=== PATIENT | female | born 1960 | race Caucasian/White ===

== ENCOUNTER 2018-09-21 12:39 | Emergency (ER) | payer MEDICARE, BC ==
[~2018-09-21] VITALS: Wt 56.7 kg
[2018-09-21] MEDS ORDERED: HYDROCODONE/APAP (10/325) TAB PO ONE (14:30)
[2018-09-21] MEDS ORDERED: PARO-2 PO (15:47)
[2018-09-21] MEDS ORDERED: LOSA100T15 PO (15:47)
[2018-09-21] MEDS ORDERED: HYDR50TA15 PO (15:48)
[2018-09-21] MEDS ORDERED: ASPI325T30 PO (15:51)
[2018-09-21] MEDS ORDERED: AMLO5TAB4 PO (15:51)
--- NOTE | 2018-09-21 16:29 | ERD ---
ER Documentation Chief Complaint Chief Complaint bib daughter, right elbow pain s/p fall "I think I dislocated my elbow" HPI This is a 58-year-old female who comes in for mechanical fall, with pain to her right elbow, along with swelling. Additionally she also landed on her right calcaneus, and complains of pain and swelling to this area as well. She had no head trauma, she had no syncopal episode. She denies any numbness or tingling, she did not suffer any abrasions or lacerations. ROS All systems reviewed and are negative except as per history of present illness. Medications Home Meds Active Scripts Hydrocodone/Acetaminophen (Hester 5-325 Tablet) 1 Each Tablet, 1 TAB PO Q6H PRN for PAIN, #7 TAB Prov:JIARO KNAPP MD 09/21/18 Reported Medications Aspirin* (Aspirin*) 325 Mg Tablet, 325 MG PO NEEDED, TAB 09/21/18 Amlodipine Besylate* (Norvasc*) 5 Mg Tablet, 5 MG PO DAILY, TAB 09/21/18 Hydroxyzine Hcl* (Hydroxyzine Hcl*) 50 Mg Tablet, 50 MG PO QHS PRN for ITCHING, #30 TAB TAKE 1 OR 2 TAB QHS 09/21/18 Losartan Potassium* (Losartan Potassium*) 100 Mg Tablet, 100 MG PO DAILY, TAB 09/21/18 Paroxetine Hcl* (Paxil*) 20 Mg Tablet, 10 MG PO HS, TAB 09/21/18 Allergies Allergies: Coded Allergies: clindamycin (Verified Allergy, Severe, 09/21/18) PMhx/Soc History of Surgery: Yes (rotator cuff repair, ankle sx, csection) Anesthesia Reaction: No Hx Alcohol Use: Yes (l) Hx Substance Use: Yes (marijuana) Hx Tobacco Use: Yes (10cig/day) Smoking Status: Current every day smoker Physical Exam Vitals Vital Signs Date Temp Pulse Resp B/P (MAP) Pulse Ox O2 O2 Flow FiO2 Time Delivery Rate 09/21/18 98.3 65 20 107/58 99 Room Air 16:45 (74) 09/21/18 98.3 83 19 115/72 100 12:43 (86) Physical Exam Const: No acute distress Head: Atraumatic Eyes: Normal Conjunctiva ENT: Normal External Ears, Nose and Mouth. Neck: Full range of motion. No meningismus. Resp: Clear to auscultation bilaterally Cardio: Regular rate and rhythm, no murmurs Abd: Soft, non tender, non distended. Normal bowel sounds Skin: No petechiae or rashes Back: No midline or flank tenderness Ext: Right upper extremity, there is full range of motion of the right shoulder, there is no axillary numbness, there is a hematoma and swelling noted posteriorly over the right elbow, range of motion is intact, distally there is no tenderness over the radius, radial pulses 2+ and sensation is intact light touch, compartments are soft and easily compressible. Right calcaneus: There is tenderness over the posterior calcaneus, there are no abrasions or lacerations, there is no tenderness over the ankle joint, posterior tibialis pulses 2+, distally cap refill is less than 2 seconds and sensation is intact to light touch Neur: Awake and alert Psych: Normal Mood and Affect Results 24 hrs Current Medications Medications Dose Sig/Leela Start Time Status Last (Trade) Ordered Route PRN Stop Time Admin Dose Reason Admin 1 tab ONCE ONCE 09/21/18 DC 09/21/18 Acetaminophen PO 14:30 14:40 / 09/21/18 14:31 Hydrocodone Bitart (Hester ([id number])) Procedures/MDM 58-year-old female presents for evaluation of mechanical fall, with no syncopal episode, and no head trauma, primary secondary survey revealed no injuries aside from the ones described above with a right elbow and a right calcaneus injury. X-ray confirmed my suspicion for fractures without evidence of dislocation, patient was placed in a posterior leg splint, as well as a long-arm splint for the elbow, she was given referral for orthopedic surgery, she has a front wheel walker at home, and instructed on nonweightbearing for the right lower extremity, additionally provided prescription for pain medication I advised her to follow-up with orthopedics as soon as possible, patient agreed to this, strict return precautions given for signs of compartment syndrome, at discharge she was in no acute distress. Departure Condition: Stable JAIRO KNAPP MD Sep 21, 2018 16:29
[2018-09-21] MEDS ORDERED: HYDR-4011 PO (16:34)
[2018-09-21 16:45] VITALS: BP 107/58; PULSE 65; RESP 20
== END 2018-09-21 18:42 | disposition home or self-care (01) ==
LOC: E/R 12:39
DX: S50.01XA Contusion of right elbow, initial encounter (principal); F17.210 Nicotine dependence, cigarettes, uncomplicated; W18.39XA Other fall on same level, initial encounter; Y92.9 Unspecified place or not applicable; Z79.82 Long term (current) use of aspirin